=== PATIENT | male | born 1950 | race Caucasian/White ===

== ENCOUNTER 2018-06-28 10:46 | Outpatient (CLI) | payer MEDICARE, OTHER ==
[2018-06-28 11:33] LABS: CALCIUM 9.2 mg/dL (8.5-10.3)
== END 2018-06-28 10:47 | disposition home or self-care (01) ==
LOC: LAB 10:46
PROVIDERS: ATTEND Internal Medicine
DX: Z79.899 Other long term (current) drug therapy (principal)
CPT/HCPCS: 36415; 80048

== ENCOUNTER 2020-10-08 15:38 | Outpatient (CLI) | payer MEDICARE ==
[2020-10-08 16:28] VITALS: BP 145/92
--- NOTE | 2020-10-08 16:28 | SLEEP CARE CONSULTATION ---
Information from patient questionnaire entered by Jorden Trejo. I have reviewed and concur with the information entered by Jorden Trejo. This document represents the service I personally performed and the decisions made by me, Cyndy Young ARNP. History of Present Illness Service Date and Time: 10/08/2020 1538 Reason for Visit: New patient Chief Complaint: reports: Unrefreshed sleep, Snoring, Observed pauses in breathing Date of Onset: Several years Usual bedtime: 10:30 - 11:30 Time it takes to fall asleep: 2 minutes Snores at night: Yes Observed to quit breathing while asleep: Yes Sleeps alone due to snoring: No Number of times waking at night: 1 Reasons for waking at night: reports: Bathroom, Other (hand/wrist pain). denies: Choking, Gasping for air Toss, Turn, or Twitch while sleeping: No Recalls having dreams: Yes (sometimes - not usually) Usually gets out of bed at: 5 AM - 6 AM Feels refreshed in the morning: Yes (sometimes) Morning headache: No Sleepy or fatigued during the day: Yes (Depends) Ever fallen asleep while driving: No Takes day naps: Yes (sometimes) Dreams during day naps: No Prior sleep studies: Yes Year and Where: [facility]19[facility] [place] Additional HPI information: I had the pleasure of seeing RAMONE MAJOR today regarding the possibility of him having a sleep disorder. His current complaints are snoring, unrefreshed sleep, fatigue and observed pauses in breathing. He had a sleep study in 2017 at [facility] in [place], [place]. He was told he had positional sleep apnea and was prescribed ZZOMA or Nightshift positional device for MARYSE. He made a device of his own and used it for positional therapy but after some time of use it has become less effective. He had carpal tunnel with 2 surgeries that were not successful on his right hand. He goes to sleep easily but wakes up in about 5 hours with hand/wrist pain. He is unable to go back to sleep and will get up, take Tylenol and put ice on his hand. He may then return to bed about an hour later and sleep for 2 more hours. He sleeps between 6.5 hours to 8 hours on average. Some days he can feel rested unless he was unable to get more than 4- 4.5 hours. 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 His filter machine operator thinks it may be due to sleep apnea. - Parasomnia Symptoms Ever been unable to move upon waking from sleep: No Walks in sleep: No Talks in sleep: No Ever acted out dreams in sleep: No Ever felt weak in the knees when startled or emotional: No Bothered by creepy, crawly, restless sensations in legs: No Problems with memory or concentration: Yes (sometimes) Subjective Initial [place] Sleepiness Scale score: 8 (in 2020) Past Medical History Past Medical History: reports: Hypertension, Arthritis, Arrythmia, Other (carpal tunnel) Social History The patient's occupation is a retiree. Patient is and lives in [place]. Have you smoked in the past 12 months: No Alcohol use: No Caffeine use: Yes Caffeine amount and frequency: 2 cups a day Family History Family history of sleep disordered breathing: Yes (Brother) Family Hx Sleep Apnea: Mother: Snoring, Father: Snoring, Sibling: Sleep apnea - Treated Allergies and Home Medications Drug allergies reviewed: Yes (sulfa drugs) Home medication list reviewed: Yes Allergy and home medication list: Chlorthalidone Glucosamine Juvenon youthful memory Juvenon Reprieve Multivitamin Vitamin D Vitamin C Tumeric Magnesium Review of Systems Weight gain over past 5 years: 8 Cardiovascular: reports: high blood pressure, irregular heart rate or pulse, leg or foot swelling Neurological: reports: other (carpal tunnel) Ear/Nose/Throat: reports: tonsillectomy, wisdom teeth removed Musculoskeletal: reports: joint pain (stiffness) Physical Exam Blood Pressure: 145/92 Cuff size: long Heart Rate: 58 O2 Saturation: 99 Height: 6 ft 4 in Weight: 232 lb Body Mass Index: 28.2 BMI Classification: Overweight Heart: regular rate and rhythm Lungs: clear bilaterally Impression and Plan 1. Suspected Obstructive Sleep Apnea-Hypopnea Syndrome, as previously diagnosed in 2017 and as suggested by a history of irregular snoring, observed cessation of breath while asleep, unrefreshed sleep,and mild cognitive impairment. Narrow oropharynx and obesity are common predisposing factors for obstructive sleep apnea-hypopnea syndrome. I recommend proceeding to polysomnography to confirm the diagnosis and to assess severity. If the patient has significant sleep disordered breathing, a manual CPAP titration study will also be performed to find the optimal treatment pressure. I informed the patient of what the sleep studies involve and after some discussion, obtained agreement to proceed. The pathophysiology of obstructive sleep apnea-hypopnea syndrome was discussed with the patient and health risks of cardiovascular and cerebrovascular disease if not treated. Patient agreed to plan. * Schedule polysomnography +- manual CPAP titration study and return in 1-2 weeks after the study to discuss result and initiate therapy. * Avoid long distance driving or driving when feeling sleepy. * Avoid alcohol, sedative and muscle relaxant around bedtime. * Attempt to lose weight. * Review instructions provided by trained office staff on how to prepare for the sleep study. * Return for follow-up after sleep study completed. Counseling Topics: Weight loss health impact Visit Type: In Office Time Spent with Patient (minutes): 38 Provider Statement: I spent 100% of the Face to Face Visit with the patient with greater than 50% spent counseling the patient and coordination of care.
== END 2020-10-08 15:39 | disposition home or self-care (01) ==
LOC: SC 15:38
PROVIDERS: ATTEND Nurse Practitioner Family
DX: R06.81 Apnea, not elsewhere classified (principal); R06.83 Snoring; G47.8 Other sleep disorders; R41.89 Other symptoms and signs involving cognitive functions and awareness; E66.3 Overweight; Z68.28 Body mass index [BMI] 28.0-28.9, adult
CPT/HCPCS: 99203; G0463; 99212

== ENCOUNTER 2020-10-27 15:15 | Outpatient (CLI) | payer MEDICARE | END 2020-10-27 15:16 | disposition home or self-care (01) | LOC: SC 15:15 | PROVIDERS: ATTEND Nurse Practitioner Family | DX: G47.33 Obstructive sleep apnea (adult) (pediatric) (principal); R09.02 Hypoxemia; E66.9 Obesity, unspecified; Z68.28 Body mass index [BMI] 28.0-28.9, adult | CPT/HCPCS: G0399 ×2; 95806 ==

== ENCOUNTER 2020-11-16 15:21 | Outpatient (CLI) | payer MEDICARE ==
--- NOTE | 2020-11-16 15:34 | SLEEP CARE CONSULTATION ---
Information from patient questionnaire entered by Jorden Trejo. I have reviewed and concur with the information entered by Jorden Trejo. This document represents the service I personally performed and the decisions made by , Cyndy Young ARNP. History of Present Illness Service Date and Time: 11/16/2020 1520 Initial [place] Sleepiness Scale score: 8 (in 2020) Current [place] Sleepiness Scale score: 8 Additional HPI information: RAMONE MAJOR returns via telehealth visit for follow up and results of the recently performed home sleep study. I explained the pathophysiology behind obstructive sleep apnea. We then spent quite a bit of time discussing different treatment options. For mild obstructive sleep apnea, surgery and oral appliance are alternatives to nasal CPAP therapy but in moderate or severe cases, nasal CPAP is the most effective and reliable treatment. Because apnea is primarily in supine position, then positional management therapy could be effective. Methods discussed such as positioning with pillows, using a T-shirt with tennis balls in the back, and shown commercial products that have a pillow format on back to prevent supine sleep. I reviewed the impact of weight changes on sleep apnea and strongly recommended losing weight. After some discussion, the patient opted to go with the nasal CPAP therapy. Nasal autoCPAP set at 4-15 cmH20 will be ordered with rationale explained. A manual titration study will be ordered if unable to find optimal pressure with office adjustments. I explained how CPAP machine works and what to expect when using the machine. Patient counseled not drink alcohol less than 4 hours before bedtime as it can increase snoring and apnea. Patient was cautioned about risks of drowsy driving until sleepiness symptoms resolve. Sleep Study - Results Type of Sleep Study: Home sleep study Prior sleep studies: Yes Year and Where: [facility] [place] Allergies and Home Medications Home medication list reviewed: Yes (no changes) Review of Systems Review of systems same as previous: Yes (no changes) Physical Exam Vital signs obtained and entered by: Telehealth visit to reduce exposure during Covid pandemic Height: 6 ft 4 in Impression and Plan 1. Obstructive Sleep Apnea-Hypopnea Syndrome, mild, with lowest oxygen saturation of 85%. Obviously this is the cause of the patients symptoms of unrefreshed sleep, and excessive daytime sleepiness. Positive pressure therapy could benefit hypertension and heart arrhythmia. As mentioned above, the patient will be started on nasal autoCPAP therapy with pressure set at 4-15 cmH2O. Compliance guidelines also reviewed. A copy of compliance guidelines will be given for reference at check out. Because the apnea is more severe supine, I instructed to avoid sleeping supine using pillow positioning until able to start CPAP use. * Nasal auto CPAP therapy, pressure at 4-15 cm H2O. * Attempt to lose weight. * Avoid alcohol consumption near bedtime. * Avoid supine sleep until using CPAP. * The patient is again cautioned about driving until sleepiness completely resolves. * Return one month after CPAP obtained. I will assess response to therapy and compliance at that time. Counseling Topics: Weight loss health impact Visit Type: Telehealth Video Video Type: VSee Patient Location: Home Location of Provider: Office Patient agrees and consents to this telehealth visit type: Yes Patient agrees to have their insurance billed: Yes Time Spent with Patient (minutes): 15 Provider Statement: I spent 100% of the Telehealth Video Call with the patient with greater than 50% spent counseling the patient and coordination of care.
== END 2020-11-16 15:22 | disposition home or self-care (01) ==
LOC: SC 15:21
PROVIDERS: ATTEND Nurse Practitioner Family
DX: G47.33 Obstructive sleep apnea (adult) (pediatric) (principal)

== ENCOUNTER 2021-01-04 14:33 | Outpatient (CLI) | payer MEDICARE ==
--- NOTE | 2021-01-04 15:15 | SLEEP CARE CONSULTATION ---
Information from patient questionnaire entered by Liz Banegas. I have reviewed and concur with the information entered by Liz Banegas. This document represents the service I personally performed and the decisions made by , Cyndy Young ARNP. History of Present Illness Service Date and Time: 01/04/2021 1433 Previous diagnosis: Mild, Obstructive Sleep Apnea-Hypopnea Syndrome AHI: 5.4 (in 2020) Reason for follow up: first compliance Equipment type: CPAP Equipment obtained from: [facility] (got initial supplies) Mask style: Nasal Mask brand: Respironics (Dreamwear) Backup mask available: No (will keep old mask when replaced) Last cushion change: 5 weeks Prior sleep studies: Yes Year and Where: 2020 - [facility]; 2016 - [facility] [place], [place] Type of Sleep Study: Home sleep study HPI additional information: RAMONE MAJOR was diagnosed to have mild, AHI 5.4, obstructive sleep apnea- hypopnea syndrome and returned today for CPAP therapy first compliance follow- up. CPAP Compliance Data - Data Reviewed with Patient Average duration of nightly device use: 6 hr 44 min Compliance rate %: 100 Current pressure setting (cmH2O): 4-15 (median 5.4, avg 7.5 and max 8.6) Humidity settin Average residual AHI: 1.1 Subjective Patient concerns: reports: dry mouth, nose, throat (occasional). denies: aerophagia, mask discomfort, air blowing in eyes, mask leak noise, condensation in mask/hose, nasal congestion, epistaxis, other Observed to snore while using device: No Current pressure setting perceived as: comfortable On therapy, patient: reports: sleeping better, awakening more refreshed, being more awake and alert during the day, more rested overall. denies: drowsiness while driving Initial [place] Sleepiness Scale score: 8 (in 2020) Current [place] Sleepiness Scale score: 6 Allergies and Home Medications Home medication list reviewed: Yes (no new meds) Review of Systems Review of systems same as previous: Yes (no changes) Physical Exam Heart Rate: 61 O2 Saturation: 98 Height: 6 ft 4 in Weight: 229 lb Body Mass Index: 27.8 BMI Classification: Overweight Impression and Plan 1. Obstructive Sleep Apnea-Hypopnea Syndrome, mild, with excellent treatment compliance and good apnea control. On CPAP therapy, the patient has better sleep quality and is more rested overall. Patient states his blood pressure is down as well. He has occasional dry mouth, 3-4 times since starting CPAP use. I advised use of a chin strap to keep mouth closed if it becomes more of an issue. He voiced understanding. He is looking into getting a travel machine. I will adjust his pressure to reflect what he has been using. Patient's apnea severity and rationale for treatment to reduce apnea, improve sleep quality and reduce cardiovascular and cerebrovascular events was reviewed. I also reviewed the benefit of consistent device use of CPAP for hypertension and arrhythmia. * Change auto CPAP pressure to 6-9 cmH2O * Notify me if snoring with mask or feeling that the pressure is too much or too little * Attempt to lose weight * Call this office if any problems using CPAP * Return for follow up in 1-2 months, or sooner if concerns arise Counseling Topics: Spare mask, Weight loss health impact Visit Type: In Office Time Spent with Patient (minutes): 27 Provider Statement: I spent 100% of the Face to Face Visit with the patient with greater than 50% spent counseling the patient and coordination of care.
== END 2021-01-04 14:34 | disposition home or self-care (01) ==
LOC: SC 14:33
PROVIDERS: ATTEND Nurse Practitioner Family
DX: G47.33 Obstructive sleep apnea (adult) (pediatric) (principal); E66.3 Overweight; Z68.27 Body mass index [BMI] 27.0-27.9, adult
CPT/HCPCS: 99213; G0463; 99212

== ENCOUNTER 2021-02-09 13:15 | Outpatient (CLI) | payer MEDICARE ==
--- NOTE | 2021-02-09 13:34 | SLEEP CARE CONSULTATION ---
Information from patient questionnaire entered by Liz Banegas. I have reviewed and concur with the information entered by iLz Banegas. This document represents the service I personally performed and the decisions made by , Cyndy Young ARNP. History of Present Illness Service Date and Time: 02/09/2021 1320 Previous diagnosis: Mild, Obstructive Sleep Apnea-Hypopnea Syndrome AHI: 5.4 (in 2020) Reason for follow up: other (6 week) Equipment type: CPAP Equipment obtained from: [facility] (has not gotten more supplies, needs to call) Mask style: Nasal Backup mask available: No (will keep old mask when replaced) Last cushion change: 1 month Prior sleep studies: Yes Year and Where: 2020 - [facility]; 2016 - [facility] [place], [place] Type of Sleep Study: Home sleep study HPI additional information: RAMONE MAJOR was diagnosed to have mild, AHI 5.4, obstructive sleep apnea- hypopnea syndrome and returns via Telehealth visit today for CPAP therapy 6 week with pressure change follow-up. CPAP Compliance Data - Data Reviewed with Patient Average duration of nightly device use: 6 hr 39 min Compliance rate %: 100 (42 days) Current pressure setting (cmH2O): 6-9 Humidity settin Average residual AHI: 0.8 Subjective Patient concerns: denies: aerophagia, mask discomfort, air blowing in eyes, mask leak noise, condensation in mask/hose, nasal congestion, dry mouth, nose, thro at, epistaxis, other Observed to snore while using device: No Current pressure setting perceived as: comfortable On therapy, patient: reports: sleeping better, awakening more refreshed, being more awake and alert during the day, more rested overall. denies: drowsiness while driving Initial [place] Sleepiness Scale score: 8 (in 2020) Current [place] Sleepiness Scale score: 6 Allergies and Home Medications Home medication list reviewed: Yes (no changes) Review of Systems Review of systems same as previous: Yes (no changes) Physical Exam Vital signs obtained and entered by: Telehealth visit to limit exposure during Covid pandemic Height: 6 ft 4 in Impression and Plan 1. Obstructive Sleep Apnea-Hypopnea Syndrome, mild, with excellent treatment compliance and excellent apnea control. On CPAP therapy, the patient has better sleep quality and is more rested overall. Patient occasionally gets some mask leak noises that reduce with adjustments of the mask. He has noticed when he turns on his side that some of the airflow is reduced with laying on his side of the tubing. Mask leaks or pressure on the tubing of the mask predominately from when patient sleeps on their side can be reduced by using a CPAP pillow. He voiced understanding. I will follow up with him 3 months. Patient's apnea sev erity and rationale for treatment to reduce apnea, improve sleep quality and reduce cardiovascular and cerebrovascular events was reviewed. I also reviewed the benefit of consistent device use of CPAP for hypertension and arrhythmia. * Continue auto CPAP pressure at 6-9 cmH2O * Notify me if snoring with mask or feeling that the pressure is too much or too little * Attempt to lose weight * Call this office if any problems using CPAP * Return for follow up in 3 months, or sooner if concerns arise Counseling Topics: Spare mask, Weight loss health impact Visit Type: Telehealth Video Video Type: VSee Patient Location: Home Other Participants: Spouse/Significant Other () Location of Provider: Office Patient agrees and consents to this telehealth visit type: Yes Patient agrees to have their insurance billed: Yes Time Spent with Patient (minutes): 21 Provider Statement: I spent 100% of the Telehealth Video Call with the patient with greater than 50% spent counseling the patient and coordination of care.
== END 2021-02-09 13:16 | disposition home or self-care (01) ==
LOC: SC 13:15
PROVIDERS: ATTEND Nurse Practitioner Family
DX: G47.33 Obstructive sleep apnea (adult) (pediatric) (principal)

== ENCOUNTER 2021-05-19 13:03 | Outpatient (CLI) | payer MEDICARE ==
--- NOTE | 2021-05-19 13:27 | SLEEP CARE CONSULTATION ---
Information from patient questionnaire entered by Zulema Muñiz. I have reviewed and concur with the information entered by Zulema Muñiz. This document represents the service I personally performed and the decisions made by , Cyndy Young ARNP. History of Present Illness Service Date and Time: 05/19/2021 1300 Previous diagnosis: Mild, Obstructive Sleep Apnea-Hypopnea Syndrome AHI: 5.4 (in 2020) Reason for follow up: three month Equipment type: CPAP Equipment obtained from: [facility] (getting supplies as needed) Mask style: Nasal Backup mask available: Yes (other mask) Last cushion change: 1 month Prior sleep studies: Yes Year and Where: 2020 - [facility]; 2016 - [facility] [place], [place] Type of Sleep Study: Home sleep study HPI additional information: RAMONE MAJOR was diagnosed to have mild, AHI 5.4, obstructive sleep apnea- hypopnea syndrome and returns via video telehealth visit today for CPAP therapy three month follow-up. Sleep Study - Results Type of Sleep Study: Home sleep study Prior sleep studies: Yes Year and Where: 2020 - [facility]; 2016 - [facility] [place], [place] CPAP Compliance Data - Data Reviewed with Patient Average duration of nightly device use: 6 hours 43 minutes Compliance rate %: 100 Current pressure setting (cmH2O): 6-9 Average residual AHI: 0.9 Central apnea: .5 Obstructive apnea: .2 Hypopnea: .2 Subjective Patient concerns: denies: aerophagia, mask discomfort, air blowing in eyes, mask leak noise, condensation in mask/hose, nasal congestion, dry mouth, nose, throat, epistaxis, other Observed to snore while using device: No Current pressure setting perceived as: comfortable On therapy, patient: reports: sleeping better, awakening more refreshed, being more awake and alert during the day, more rested overall. denies: drowsiness while driving Initial [place] Sleepiness Scale score: 8 (in 2020) Current [place] Sleepiness Scale score: 6 Allergies and Home Medications Home medication list reviewed: Yes (restarted amlodipine 3 days ago) Review of Systems Review of systems same as previous: Yes (no changes) Physical Exam Vital signs obtained and entered by: Telehealth visit to reduce exposure during covid pandemic Height: 6 ft 4 in Impression and Plan 1. Obstructive Sleep Apnea-Hypopnea Syndrome, mild, with excellent treatment compliance and excellent apnea control. On CPAP therapy, the patient has better sleep quality and is more rested overall. Patient is doing very well with his CPAP therapy and is comfortable with current pressures. His has told him at times that it seems like he is breathing faster when he uses CPAP that he normally would breathe. Patient states when he averages 6 hours he feels really good and is not tired during the day. He has adjusted his humidity at 5 with good results. He denies any issues or concerns with his CPAP use today. Patient was encouraged to lose weight for their overall health and to reduce apneas. Patient's apnea severity and rationale for treatment to reduce apnea, improve sleep quality and reduce cardiovascular and cerebrovascular events was reviewed. I also reviewed the benefit of consistent device use of CPAP for hypertension and arrhythmia. * Continue auto CPAP pressure at 6-9 cmH2O * Notify me if snoring with mask or feeling that the pressure is too much or too little * Attempt to lose weight * Call this office if any problems using CPAP * Return for follow up in 6 months, or sooner if concerns arise Counseling Topics: Spare mask, Weight loss health impact Visit Type: Telehealth Video Video Type: VSee Patient Location: Home Location of Provider: Office Patient agrees and consents to this telehealth visit type: Yes Patient agrees to have their insurance billed: Yes Time Spent with Patient (minutes): 25 Provider Statement: I spent 100% of the Telehealth Video Call with the patient with greater than 50% spent counseling the patient and coordination of care.
== END 2021-05-19 13:04 | disposition home or self-care (01) ==
LOC: SC 13:03
PROVIDERS: ATTEND Nurse Practitioner Family
DX: G47.33 Obstructive sleep apnea (adult) (pediatric) (principal)

== ENCOUNTER 2023-06-14 13:51 | Outpatient (CLI) | payer MEDICARE ==
--- NOTE | 2023-06-14 15:41 | XRAY Report ---
PROCEDURE: Hip w/Pelvis 2-3V RT INDICATIONS: RIGHT HIP PAIN TECHNIQUE: AP pelvis with lateral view(s) of the right hip(s). COMPARISON: None. FINDINGS: Bones: No fractures or dislocations. No suspicious bony lesions. Nonuniform joint space narrowing with osteophytosis and subchondral cystic change. Soft tissues: No suspicious soft tissue calcifications or masses. IMPRESSION: Moderate to severe right hip osteoarthritis. Kellgren-Fidel scale of osteoarthritis: 3. Reviewed by: Irving Self on 06/14/2023 3:39 PM PST Approved by: Irving Self on 06/14/2023 3:39 PM PST Station ID: [id number]
== END 2023-06-14 13:52 | disposition home or self-care (01) ==
LOC: DI 13:51
PROVIDERS: ATTEND Internal Medicine
DX: M16.11 Unilateral primary osteoarthritis, right hip (principal)

== ENCOUNTER 2025-07-01 13:49 | Observation (INO) ==
[2025-07-01 15:22] LABS: HCT - HEMATOCRIT 45.6 % (42.0-52.0); HGB - HEMOGLOBIN 16.0 g/dL (14.0-18.0); MEAN PLATELET VOLUME 8.6 fL (7.4-11.4); NRBC ABSOLUTE COUNT (AUTO) 0.00 x10^3/uL; NUCLEATED RED BLOOD CELLS AUTO 0.0 /100WBC; PLT - PLATELET COUNT 185 10^3/uL (130-450); RED CELL DISTRIBUTION WIDTH 12.2 % (12.0-15.0)
[2025-07-01 15:38] LABS: ALT ALANINE AMINOTRANSFERASE 19.0 IU/L (10-60); AST ASPARTATE AMINOTRANSFERASE 16.0 IU/L (10-42); BUN - BLOOD UREA NITROGEN 19.0 mg/dL (6-20); CARBON DIOXIDE - CO2 30.0 mmol/L (21-32); CREATININE 1.0 mg/dL (0.6-1.3); GFR - MDRD 73.0 (>89)
[2025-07-01 15:49] LABS: TROPONIN I HIGH SENSITIVITY 61.5 ng/L (2.3-19.7)
[2025-07-01] MEDS: SODIUM CHLORIDE 0.9% 1,000 ML IV STA ×2 (15:54→17:16)
[2025-07-01] MEDS: METOPROLOL 5 MG/5 ML VIAL IVP STA ×2 (15:55→17:11)
[2025-07-01] MEDS: MAGNESIUM SULFATE 2 GRAM 2 GM/50 ML BAG IV ONE (15:58)
[2025-07-01] MEDS: MAGNESIUM SULFATE 1 GM/2 ML VIAL IVP STA (16:03)
--- NOTE | 2025-07-01 16:39 | XRAY Report ---
PROCEDURE: XR Chest 1V INDICATIONS: infectious workup TECHNIQUE: One view of the chest was acquired. COMPARISON: None. FINDINGS: Surgical changes and devices: None. Lungs and pleura: No pleural effusions or pneumothorax. No consolidation. Mediastinum: Mediastinal contours appear normal. Heart size is normal. Bones and chest wall: No suspicious bony lesions. Overlying soft tissues appear unremarkable. IMPRESSION: No acute cardiopulmonary process. Reviewed by: Nato Plunkett MD on 07/01/2025 4:36 PM PST Approved by: Nato Plunkett MD on 07/01/2025 4:36 PM PST Station ID: [id number]
[2025-07-01 16:53] LABS: GLUCOSE, URINE (UA) NEGATIVE (NEGATIVE); KETONES,URINE (UA) 40 mg/dL (NEGATIVE); OCCULT BLOOD,URINE NEGATIVE (NEGATIVE)
[2025-07-01 17:29] LABS: B. PARAPERTUSSIS- RESP PCR PAN NOT DETECTED; B. PERTUSSIS- RESP PCR PANEL NOT DETECTED; C. PNEUMONIAE- RESP PCR PANEL NOT DETECTED; CORONAVIRUS 229E-RESP PCR NOT DETECTED; CORONAVIRUS HKU1-RESP PCR NOT DETECTED; CORONAVIRUS NL63-RESP PCR NOT DETECTED; CORONAVIRUS OC43-RESP PCR NOT DETECTED; HUMAN METAPNEUMOVIRUS NOT DETECTED; INFLUENZA A- RESP PCR PANEL NOT DETECTED; INFLUENZA B - RESP PCR PANEL NOT DETECTED; M. PNEUMONIAE- RESP PCR PANEL NOT DETECTED; PARAINFLUENZA VIRUS 1 NOT DETECTED; PARAINFLUENZA VIRUS 2 NOT DETECTED; PARAINFLUENZA VIRUS 4 NOT DETECTED; RHINOVIRUS/ENTEROVIRUS DETECTED; RSV- RESP PCR PANEL NOT DETECTED; SARS-CoV-2 -RESP PCR PANEL NOT DETECTED
--- NOTE | 2025-07-01 17:57 | HISTORY & PHYSICAL EXAMINATION ---
Chief Complaint Chief Complaint Chief Complaint: Fatigue, Low BP` History of Present Illness Admitted From Admitted From:: ED History Obtained From Records Reviewed: [facility] History obtained from: EMR, Patient, ED Provider History of Present Illness HPI Comment/Other: Patient is 74-year-old male with past medical history of hypertension, MARYSE, lower extremity edema who presents with 2 to 3 days of progressive fatigue and Findings of low blood pressure on his home blood pressure cuff. He says he was having low blood pressure in the community. He does not follow with cardiology. He is treated by his primary care doctor for hypertension. He has been trialed in the past on multiple diuretics, ARB's, and calcium channel blockers in the past. He was on amlodipine and chlorthalidone for a long time with stable blood pressure. He stopped tolerating that earlier this year with low blood pressure. He has been trialed on telmisartan, amlodipine, HCTZ historically. Was recently transition to eplerenone. He had an echocardiogram in March which reveals EF 60 to 65%. Normal right ventricular function. No significant valvular disease. RVSP of 25 mmHg. In the ED, he was found to have atrial fibrillation with RVR. This is a new diagnosis for the patient. May have been precipitated by rhinovirus infection which is positive on viral respiratory panel. His rate was 159. He has received some fluids in the ED, his rate is come down somewhat to the 120s. He otherwise feels fine. His blood pressure is 90s to 100s systolic. Not on a beta-mona at baseline. No known history of atrial fibrillation. Last EKG from November was normal sinus rhythm. Patient is feeling well and healthy at baseline. He just recently got back from [place] where they were for vacation. 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 He now works independently and creates [email or web address] work. Incidentally, his son is an remelt furnace expediter at . His spouse Lisa is his surrogate decision maker. His son is also a trusted advisor with regard to his health. Patient endorses that he feels generally healthy. He is active. He would like a trial of resuscitative efforts. He will continue to ponder on this, and discussed with his son. Patient endorses that they are full code/full treatment during this admission. No POLST was filled out during this admission as a full code POLST on file may lead to further ambiguity if the patient's wishes are to change in the future. Given that full code and full treatment is the default mode for the healthcare system, no clinical utility is seen and filling out a full code POLST and was not performed during this hospitalization. Meds/Allgy Home Medications Ambulatory Orders Medication Instructions Recorded Confirmed amlodipine 2.5 mg tablet 2.5 mg PO DAILY 12/05/24 chlorthalidone 25 mg tablet 25 mg PO DAILY 12/05/24 Allergies Allergies Allergy/AdvReac Type Severity Reaction Status Date / Time Sulfa (Sulfonamide Allergy Intermediate Rash Verified 07/01/25 14:01 Antibiotics) PFSH Active Problems All Active Problems (Updated 07/01/25 @ 18:45 by Mauricio Spivey DO) MARYSE (obstructive sleep apnea) (Chronic) Hypertension (Chronic) Elevated troponin (Acute) Atrial fibrillation with RVR (Chronic) Social History Social History Smoking Status: Never smoker Do you feel safe in your home environment?: Yes History of physical, verbal, emotional, or financial abuse?: No POLST Patient has POLST: No Exam Exam Vital Signs: Vital Signs x48h Temp Pulse Resp BP Pulse Ox 07/01/25 18:39 17 07/01/25 17:44 128 H 17 95/61 97 07/01/25 17:21 121 H 17 95 07/01/25 17:19 123 H 18 103/59 L 96 07/01/25 17:01 123 H 17 93/78 97 07/01/25 16:41 120 H 17 96 07/01/25 15:36 107 H 17 109/86 98 07/01/25 13:55 37.0 C 76 20 127/107 H 96 GEN: No acute distress. Appears younger than stated age. Tall, scrunched in bed HEENT: NC/AT, normal appearance of external ears and nose. Hearing baseline. Cardiac: Rapid, irregular regular. No murmurs appreciated. Generally euvolemic on exam. Wearing compression stockings. Pulm: Lungs CTA bilaterally, no cough, no wheezes. No adventitial lung sounds. Normal effort on room air. Abdomen: Soft, nontender, nondistended. No rebound or guarding Neuro: Face symmetric, CN II through XII intact grossly. No focal neurologic deficits. Speech is fluent. Moves all extremities equally. Psych: Mood is euthymic with congruent affect. Good fund of knowledge. Judgment intact. Conclusion/Plan Problem List (1) Atrial fibrillation with RVR: Plan: New diagnosis for the patient. Still in RVR. Rate of 110. No efforts to for cardioversion yet. Presented with fatigue and low blood pressure. In the setting of rhinovirus and diuretic use as below. He has not been on a beta-mona before. WDM2TP5-HT = 3 on account of age and hypertension. Recommendation for anticoagulation. Incident of stroke 5.1 per 100. - Discussed with Dr. Urena, I am choosing to admit to observation - Starting on metoprolol titrate 25 mg every 6 Hr with holding parameters - Will transition to succinate based on rate control - Advised to be started on DOAC tomorrow, will discuss with patient - Continue on telemetry - Defer echo in the setting of recent echo from March (2) Elevated troponin: Plan: Suspected demand ischemia in the setting of his A-fib with RVR. Troponin in the ED was 61.5. Increased to 80.6. Normal for our lab is 19.7. This rate of elevation is most consistent with demand ischemia. Patient is having no anginal symptoms at this time. His EKG was personally reviewed, does not show any ST elevations or pathologic T wave inversions. - Treat A-fib as above - Trend troponin to peak - If he develops anginal symptoms, would start on heparin drip, consider transfer for cardiac cath (3) Hypertension: Plan: Longstanding history of hypertension. States that his blood pressure typically runs around 140s systolic. His primary care doctor has been making med changes to hopefully bring down his blood pressure, but has been limited by side effects. Most recently trialed on eplerenone with resultant hypotension and fatigue. - Will rate control with metoprolol, can consider transition to carvedilol with his primary care doctor for more alpha antagonism (4) MARYSE (obstructive sleep apnea): Plan: Patient with longstanding history of MARYSE. Uses CPAP at home. His will bring in his CPAP - Okay to use CPAP from home. Plan I spent a total of 57 minutes in the care of this patient today. This time was spent reviewing labs, vital signs, imaging, interviewing and examining the patient, and discussing plan of care with them and their other care providers. Patient is presenting with a acute illness that poses threat to life with his arrhythmia and troponin elevation. I discussed his case with the ED provider, Dr. Lopez, and a decision was made to admit this patient observation status. [id number] Lab Results 07/01/25 15:12 07/01/25 15:12
--- NOTE | 2025-07-01 18:36 | ED Physician Documentation ---
History of Present Illness Stated complaint Stated Complaint: DIZZY, LOW BP, NEW MED Chief complaint Chief Complaint: Neuro Additonal information Additional information: Patient is a 74 year old male who presents to the ER due to new developments of Lightheadedness and general weakness today. He denied any chest pain or shortness of breath but did state a few times today he was feeling palpitations in his chest. He does have a history of hypertension and has been trialing multiple new medications to help manage this with his regular doctor. He was started on a new antihypertensive agent three days ago. He recently got back from [place] this weekend, but denies any overt symptoms of illness to include upper respiratory infectious symptoms. Currently, he denies any headache, visual changes, Vertigo, neck pain, chest pain, shortness of breath, abdominal pain, flank pain, urination changes. He does endorse recent bout of diarrhea. Review of Systems Status of ROS: See HPI Meds/Allgy Home Medications Ambulatory Orders Medication Instructions Recorded Confirmed amlodipine 2.5 mg tablet 2.5 mg PO DAILY 12/05/24 chlorthalidone 25 mg tablet 25 mg PO DAILY 12/05/24 Allergies Allergies Allergy/AdvReac Type Severity Reaction Status Date / Time Sulfa (Sulfonamide Allergy Intermediate Rash Verified 07/01/25 14:01 Antibiotics) PFSH Active Problems All Active Problems (Updated 07/02/25 @ 00:24 by Channing Urena MD) MARYSE (obstructive sleep apnea) (Chronic) Hypertension (Chronic) Elevated troponin (Acute) Atrial fibrillation with RVR (Chronic) Social History Social History (Updated 07/01/25 @ 18:53 by Mauricio Spivey DO) Smoking Status: Never smoker Do you dip or chew tobacco?: No Do you vape?: No Level: Independent Do you feel safe in your home environment?: Yes History of physical, verbal, emotional, or financial abuse?: No POLST Patient has POLST: No Exam Exam Vital Signs: Vital Signs x48h Pulse Resp BP Pulse Ox 07/01/25 17:44 128 H 17 95/61 97 07/01/25 17:21 121 H 17 95 07/01/25 17:19 123 H 18 103/59 L 96 07/01/25 17:01 123 H 17 93/78 97 07/01/25 16:41 120 H 17 96 Constitutional normal general appearance Resting comfortably, no acute distress. Nontoxic. No diaphoresis, no pallor. HENMT normocephalic Eyes conjunctivae normal Respiratory breath sounds equal bilaterally, normal respiratory effort, clear to auscultation bilaterally and no wheezes Cardiovascular Tachycardic to 150s-170s, irregular. Normal S1S2, no murmurs. Radial pulses 2+, symmetric. 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, no movement abnormality noted, no focal motor deficit noted, no sensory deficits noted and GCS 15 Psychiatry mental status grossly normal and oriented x3 Skin skin color normal Results Vitals Vitals: Vital Signs - 24 hr 07/01/25 13:55 07/01/25 15:20 07/01/25 15:36 Temperature 37.0 C Pulse Rate 76 107 H Respiratory Rate 20 17 Blood Pressure 127/107 H 109/86 O2 Saturation 96 98 O2 Source Room air Room air Pain Intensity 0 4 4 07/01/25 16:41 07/01/25 17:01 07/01/25 17:19 Temperature Pulse Rate 120 H 123 H 123 H Respiratory Rate 17 17 18 Blood Pressure 93/78 103/59 L O2 Saturation 96 97 96 O2 Source Room air Room air Room air Pain Intensity 5 0 0 07/01/25 17:21 07/01/25 17:44 Temperature Pulse Rate 121 H 128 H Respiratory Rate 17 17 Blood Pressure 95/61 O2 Saturation 95 97 O2 Source Room air Room air Pain Intensity 0 0 Oxygen O2 Source Room air Labs Labs: Laboratory Tests 07/01/25 07/01/25 07/01/25 15:12 16:05 16:16 WBC 9.4 RBC 4.77 Hgb 16.0 Hct 45.6 MCV 95.6 H MCH 33.5 H MCHC 35.1 RDW 12.2 Plt Count 185 MPV 8.6 Neut # (Auto) 7.5 H Lymph # (Auto) 1.1 L [place] # (Auto) 0.8 Eos # (Auto) 0.0 Baso # (Auto) 0.0 Absolute Nucleated RBC 0.00 Nucleated RBC % 0.0 Sodium 137 Potassium 3.9 Chloride 101 Carbon Dioxide 30 Anion Gap 6.0 BUN 19 Creatinine 1.0 Estimated GFR (MDRD) 73 L Glucose 105 H POC Whole Bld Glucose 95 Calcium 9.3 Magnesium 2.2 Total Bilirubin 0.7 AST 16 ALT 19 Alkaline Phosphatase 53 Troponin I High Sens 61.5 H* B-Natriuretic Peptide 126 H Total Protein 6.6 Albumin 4.2 Globulin 2.4 Albumin/Globulin Ratio 1.8 Lipase 15 TSH 0.89 Urine Color Urine Clarity Urine pH Ur Specific [place] Urine Protein Urine Glucose (UA) Urine Ketones Urine Occult Blood Urine Nitrite Urine Bilirubin Urine Urobilinogen Ur Leukocyte Esterase Ur Microscopic Review Urine Culture Comments Nasal Adenovirus (PCR) NOT DETECTED Nasal B. parapertussis DNA (PCR) NOT DETECTED Nasal Coronavir 229E PCR NOT DETECTED Nasal Coronavir HKU1 PCR NOT DETECTED Nasal Coronavir NL63 PCR NOT DETECTED Nasal Coronavir OC43 PCR NOT DETECTED Nasal Enterovir/Rhinovir PCR DETECTED A Nasal Influenza B PCR NOT DETECTED Nasal Influenza A PCR NOT DETECTED Nasal Parainfluen 1 PCR NOT DETECTED Nasal Parainfluen 2 PCR NOT DETECTED Nasal Parainfluen 3 PCR NOT DETECTED Nasal Parainfluen 4 PCR NOT DETECTED Nasal RSV (PCR) NOT DETECTED Nasal B.pertussis DNA PCR NOT DETECTED Nasal C.pneumoniae (PCR) NOT DETECTED [place] Human Metapneumo PCR NOT DETECTED Nasal M.pneumoniae (PCR) NOT DETECTED Nasal SARS-CoV-2 (PCR) NOT DETECTED 07/01/25 07/01/25 16:30 17:35 WBC RBC Hgb Hct MCV MCH MCHC RDW Plt Count MPV Neut # (Auto) Lymph # (Auto) [place] # (Auto) Eos # (Auto) Baso # (Auto) Absolute Nucleated RBC Nucleated RBC % Sodium Potassium Chloride Carbon Dioxide Anion Gap BUN Creatinine Estimated GFR (MDRD) Glucose POC Whole Bld Glucose Calcium Magnesium Total Bilirubin AST ALT Alkaline Phosphatase Troponin I High Sens 80.6 H* B-Natriuretic Peptide Total Protein Albumin Globulin Albumin/Globulin Ratio Lipase TSH Urine Color YELLOW Urine Clarity CLEAR Urine pH 6.5 Ur Specific [place] 1.010 Urine Protein TRACE Urine Glucose (UA) NEGATIVE Urine Ketones 40 H Urine Occult Blood NEGATIVE Urine Nitrite NEGATIVE Urine Bilirubin NEGATIVE Urine Urobilinogen 0.2 (NORMAL) Ur Leukocyte Esterase NEGATIVE Ur Microscopic Review NOT INDICATED Urine Culture Comments NOT INDICATED Nasal Adenovirus (PCR) Nasal B. parapertussis DNA (PCR) Nasal Coronavir 229E PCR Nasal Coronavir HKU1 PCR Nasal Coronavir NL63 PCR Nasal Coronavir OC43 PCR Nasal Enterovir/Rhinovir PCR Nasal Influenza B PCR Nasal Influenza A PCR Nasal Parainfluen 1 PCR Nasal Parainfluen 2 PCR Nasal Parainfluen 3 PCR Nasal Parainfluen 4 PCR Nasal RSV (PCR) Nasal B.pertussis DNA PCR Nasal C.pneumoniae (PCR) [place] Human Metapneumo PCR Nasal M.pneumoniae (PCR) Nasal SARS-CoV-2 (PCR) PD Medical Decision Making ED course ED course: Assessment: 74 year old male presenting with palpitations, weakness, Lightheadedness today. These symptoms are new today, without previous history of similar problems. Has been undergoing multiple medication changes recently for blood pressure management with pcp, was recently put on a new agent a few days ago. He denies any chest pain or shortness of breath but does endorse intermittent palpitations today. Also endorses recent diarrheal illness. Monitor in room shows tachycardic rate in the 1 50s to 170s, irregular. Differential diagnosis: Atrial fibrillation with rapid ventricular response, A flutter, electrolyte abnormality, dehydration, volume depletion, viral gastrointestinal illness, orthostatic hypotension, syncope, etc. Work up: WBC 9.4. Hemoglobin 16.0. CMP is unremarkable, creatinine stable period magnesium within normal limits. BNP 126. Troponin 61.5, repeat 80.6. UA with ketones, otherwise unremarkable. RESP panel + for rhinovirus/enterovirus. CXR with no acute cardiopulmonary process, no sign of pneumonia, vascular congestion. EKG: Tachycardic rate, irregular rhythm consistent with Atrial fibrillation with RVR, QTC 472, malignant ST segment changes. Treatment: IV fluids 2 L, 2 g IV magnesium, Metoprolol 5 mg X2. Discussion: Patient presents today with a fib RVR which he is likely symptomatic from today with his Llghtheadedness, weakness. On arrival his heart rate was in the 150 to 170 range. He denied chest pain or shortness of breath. With use of fluids, magnesium, and metoprolol I was able to get his heart rate to stay between upper 90s and 120. His workup is notable for a positive rhinovirus but he does not have common cold symptoms. His troponin is elevated to roughly 60 and 80, which I think is most likely related to demand ischemia in the setting of a fib with RVR. Patient does have a relatively elevated heart score, and with new onset at afib, weakness, lightheadedness today. Therefore, think he would benefit from admission, further workup, and stabilization prior to discharge. Admitted to hospitalist. Patient and agreeable with plan. Discharge Plan Discharge Patient Disposition: [facility] DC/Xfer Condition: Stable Clinical Impression: Atrial fibrillation with RVR, Elevated troponin, Hypertension Interventions: ED Admission Assessment Last Done: 07/01/25 18:39 Vitals documented within 30 minutes of discharge?: Yes
[2025-07-01] MEDS ORDERED: ONDANSETRON ODT 4 MG TABLET TL PRN (18:48)
[2025-07-01] MEDS ORDERED: ONDANSETRON 4 MG/2 ML VIAL IVP PRN (18:48)
[2025-07-01] MEDS ORDERED: SODIUM CHLORIDE FLUSH 0.9% 10 ML SYRINGE IVP PRN (18:48)
[2025-07-01] MEDS: ACETAMINOPHEN 325 MG TABLET PO PRN (19:30)
[2025-07-01] MEDS: METOPROLOL TARTRATE 25 MG TABLET PO SCH (19:59)
[2025-07-01] MEDS: SODIUM CHLORIDE FLUSH 0.9% 10 ML SYRINGE IVP SCH (23:57)
--- NOTE | 2025-07-02 07:19 | Discharge Summary ---
"Discharge Summary Admit Date: 07/01/25 Discharge Date: 07/02/25 Discharging Provider: Mauricio Spivey Primary Care Provider: Karri Obando Code Status: Attempt Resuscitation Discharge Facility Name: Home DIAGNOSES Discharge Diagnoses with Status of Each Condition: Atrial fibrillation with RVR: Rate controlled after 2 doses of IV and 1 dose of oral metoprolol. Remains rate controlled on metoprolol succinate 25 mg. Normal renal function. [id number] = 3 started on DOAC Elevated troponin: Downtrending as of 07/02 AM. Suspect demand ischemia in the setting of his tachycardia. No chest pain or anginal symptoms at discharge. Rhinovirus: Patient presented with symptoms of fatigue and A-fib with RVR as above. Found on workup to have viral respiratory panel positive for rhinovirus. No fevers or upper respiratory symptoms. Continue supportive care. Hypertension: Blood pressures have remained normotensive here. Starting on beta-mona as above. Hold other antihypertensives. Patient will keep blood pressure log and should follow-up with primary care doctor. MARYSE: Stable. Used CPAP while in house. HPI History of Present Illness: Patient is 74-year-old male with past medical history of hypertension, MARYSE, lower extremity edema who presents with 2 to 3 days of progressive fatigue and Findings of low blood pressure on his home blood pressure cuff. He says he was having low blood pressure in the community. He does not follow with cardiology. He is treated by his primary care doctor for hypertension. He has been trialed in the past on multiple diuretics, ARB's, and calcium channel blockers in the past. He was on amlodipine and chlorthalidone for a long time with stable blood pressure. He stopped tolerating that earlier this year with low blood pressure. He has been trialed on telmisartan, amlodipine, HCTZ historically. Was recently transition to eplerenone. He had an echocardiogram in March which reveals EF 60 to 65%. Normal right ventricular function. No significant valvular disease. RVSP of 25 mmHg. In the ED, he was found to have atrial fibrillation with RVR. This is a new diagnosis for the patient. May have been precipitated by rhinovirus infection which is positive on viral respiratory panel. His rate was 159. He has received some fluids in the ED, his rate is come down somewhat to the 120s. He otherwise feels fine. His blood pressure is 90s to 100s systolic. Not on a beta-mona at baseline. No known history of atrial fibrillation. Last EKG from November was normal sinus rhythm. Patient is feeling well and healthy at baseline. He just recently got back from [place] where they were for vacation. 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 He now works independently and creates [employer] work. Incidentally, his son is an stove bottom worker at . His spouse Lisa is his surrogate decision maker. His son is also a trusted advisor with regard to his health. Patient endorses that he feels generally healthy. He is active. He would like a trial of resuscitative efforts. He will continue to ponder on this, and discussed with his son. Patient endorses that they are full code/full treatment during this admission. No POLST was filled out during this admission as a full code POLST on file may lead to further ambiguity if the patient's wishes are to change in the future. Given that full code and full treatment is the default mode for the healthcare system, no clinical utility is seen and filling out a full code POLST and was not performed during this hospitalization. CONSULTS | PROCEDURES Consultations: None Procedures: CXR 07/01 HOSPITAL COURSE Hospital Course: Patient is 74-year-old male with past medical history notable for hypertension and MARYSE. He was admitted for feelings of fatigue and documented hypotension at home. He is recently been started on eplerenone. He had a profound response to this. He was also found to have rhinovirus on initial admission. He is largely asymptomatic from this. Afebrile. No upper respiratory symptoms. No diarrhea. He was treated with beta-blockers to help rate control. He responded immensely to these. He converted to normal sinus rhythm. His rates are in the 50s to 60s. He is being discharged on metoprolol succinate 25 mg. His [id number] is 3. He is being started on apixaban. His renal function is normal. Finally he was found to have a slight troponin leak likely attributable to his tachycardia. He is not having any anginal symptoms. His troponin trended from 61.5 peaked at 80.6 and is 53.6 at time of discharge. Upper limit of normal for our lab is 19.7. Patient was seen and evaluated on day of discharge. He is feeling well. He is tolerating a regular diet. He is able to ambulate without any worsening symptoms. He is rate controlled in the 50s to 60s. His blood pressure is stable and normotensive not on any other antihypertensives. Advised him to continue to track his blood pressures at home. Hold his prior antihypertensives. He is only to be on metoprolol and apixaban until he follows up with his primary care doctor. If he is continue to have hypertension, he can consider transitioning to a carvedilol which may have more hemodynamic effect. ALLERGIES Allergies Allergy/AdvReac Type Severity Reaction Status Date / Time Sulfa (Sulfonamide Allergy Intermediate Rash Verified 07/01/25 14:01 Antibiotics) MEDICATIONS Ambulatory Orders Medication Instructions Recorded Confirmed apixaban 5 mg tablet 5 mg PO BID #60 tabs 5 metoprolol succinate 25 mg 25 mg PO DAILY #30 tabs tablet,extended release 24 hr PHYSICAL EXAM AT DISCHARGE Vital Signs: Vital Signs x48h Temp Pulse Pulse Resp BP Pulse Ox 07/02/25 08:00 36.6 C 53 L 16 105/67 95 07/02/25 06:02 57 L 07/02/25 05:12 37.2 C 56 L 18 116/70 98 LABS 07/02/25 08:31 07/02/25 08:31 Other Lab Results: Troponin trend: 61.5, 80.6, 53.6 DIAGNOSTIC IMAGING Diagnostic Imaging Results Comments: CXR 07/01: No acute cardiopulmonary process EKG 07/01 with atrial fibrillation, rate 159. No pathologic T wave inversions. No ST elevations. FOLLOW UP Follow Up: F/U with PCP in 2-4 weeks with BP logs TIME SPENT Time Spent in Discharge (Minutes): 37 Discharge Plan Discharge Patient Disposition: Home, Self Care Condition: Stable Medically Cleared Date:: 07/02/25 Prescriptions: New metoprolol succinate 25 mg Tablet Extended Release 24 Hr 25 mg PO DAILY Qty: 30 0RF apixaban 5 mg tablet 5 mg PO BID Qty: 60 2RF Discontinued amlodipine 2.5 mg tablet 2.5 mg PO DAILY chlorthalidone 25 mg tablet 25 mg PO DAILY venlafaxine 37.5 mg capsule,extended release 24hr PO telmisartan 80 mg tablet hydrochlorothiazide 25 mg tablet eplerenone 25 mg tablet Diet: Regular Health Concerns: You have been diagnosed with atrial fibrillation (AFib) with a fast heart rate, which has now been controlled. You are being treated with metoprolol succinate (a beta mona) and Eliquis (apixaban, a blood thinner). Medications: * Take metoprolol succinate 25 mg once daily as prescribed. This helps keep your heart rate controlled. Do not skip doses or stop taking it without talking to your doctor. * Take Eliquis exactly as prescribed to reduce your risk of stroke. Missing doses increases your risk of blood clots and stroke. * If you miss a dose of Eliquis, take it as soon as you remember. If it is almost time for your next dose, skip the missed dosedo not double up. What to Watch For: * Call your doctor or seek emergency care if you experience chest pain, severe shortness of breath, fainting, or palpitations that do not go away. * Watch for signs of bleeding (unusual bruising, blood in urine or stool, coughing up blood, nosebleeds that do not stop). If you have any of these, contact your doctor immediately. * Report any new or worsening symptoms, such as swelling in your legs, sudden weight gain, or confusion. Activity and Lifestyle: * Resume normal activities as tolerated. Avoid strenuous exercise for the next 2 weeks or until cleared by a doctor. * Limit alcohol and avoid recreational drugs, as these can trigger AFib episodes. * Stay hydrated Follow-Up: * Schedule a follow-up appointment with your primary care provider or automatic chief within 1-2 weeks. * You may need blood tests to monitor kidney function and other labs. * It may be time to establish with a automatic chief, but I defer to your primary care doctor. * Bring a list of your medications to every appointment. Other Instructions: * Carry a list of your medications and medical conditions with you at all times. * Inform all healthcare providers that you are taking Eliquis, especially before any procedures or new prescriptions. * Do not start or stop any medications, including [id number] drugs or supplements, without consulting your doctor. When to Seek Immediate Help: Severe chest pain, sudden weakness or numbness, difficulty speaking, or vision changesthese may be signs of stroke or heart attack and require immediate attention. Print Language: [place] Patient Instructions: Apixaban, AFib Dc, A-Fib Follow-up Care: KARRI OBANDO MD [Primary Care Provider, Family Practice] Vitals documented within 30 minutes of discharge?: Yes"
[2025-07-02] MEDS: APIXABAN 5 MG TABLET PO SCH (08:31)
[2025-07-02] MEDS: METOPROLOL SUCCINATE 25 MG TABLET PO SCH (08:31)
[2025-07-02 08:52] VITALS: O2SAT 95
[2025-07-02 09:00] LABS: HCT - HEMATOCRIT 40.7 % (42.0-52.0); HGB - HEMOGLOBIN 13.6 g/dL (14.0-18.0); MEAN PLATELET VOLUME 9.1 fL (7.4-11.4); NRBC ABSOLUTE COUNT (AUTO) 0.00 x10^3/uL; NUCLEATED RED BLOOD CELLS AUTO 0.0 /100WBC; PLT - PLATELET COUNT 172 10^3/uL (130-450); RED CELL DISTRIBUTION WIDTH 12.7 % (12.0-15.0)
[2025-07-02] MEDS ORDERED: ENOXAPARIN 40 MG/0.4 ML SYRINGE SUBQ SCH (09:00)
[2025-07-02 09:14] LABS: BUN - BLOOD UREA NITROGEN 22.0 mg/dL (6-20); CARBON DIOXIDE - CO2 29.0 mmol/L (21-32); CREATININE 0.8 mg/dL (0.6-1.3); GFR - MDRD 94.0 (>89)
[2025-07-02 09:32] LABS: TROPONIN I HIGH SENSITIVITY 53.6 ng/L (2.3-19.7)
[2025-07-02 10:39] VITALS: BP 121/72; TEMP 97.5
== END 2025-07-02 10:45 | disposition home or self-care (01) ==
LOC: MS3 13:49 → ED 13:49 → MS3 19:40
PROVIDERS: ADMIT Student in an Organized Health Care Education/Training Program; ATTEND Student in an Organized Health Care Education/Training Program